=== PATIENT | male | born 1970 | race Caucasian/White ===

== ENCOUNTER 2017-08-01 07:20 | Emergency (ER) | payer BC ==
[2017-08-01 07:36] VITALS: BP 143/94
--- NOTE | 2017-08-01 08:04 | UC ---
Lower Extremity/Ankle HPI - HPI Summary HPI Summary: 2-3 DAYS OF RIGHT GREAT TOE PAIN. DENIES ANY INJURY OR TRAUMA, FOREFOOT IS RED AND SWOLLEN. LAST NIGHT CUT HIS GREAT TOENAIL TOO SHORT AND HAD SOME CLEAR DRAINAGE TODAY. WONDERING ABOUT INFECTION. NO FEVER, N/V. - History of Current Complaint Chief Complaint: UCLowerExtremity Stated Complaint: FOOT INJURY Time Seen by Provider: 08/01/17 07:28 Hx Obtained From: Patient Onset/Duration: Gradual Onset, Lasting Days, Still Present Severity Initially: Moderate Severity Currently: Moderate Pain Intensity: 8 Pain Scale Used: 0-10 Numeric Aggravating Factor(s): Standing, Ambulation Alleviating Factor(s): Nothing Able to Bear Weight: Yes - WITH PAIN - Allergies/Home Medications Allergies/Adverse Reactions: Allergies Allergy/AdvReac Type Severity Reaction Status Date / Time Penicillins Allergy Hives Verified 08/01/17 07:26 Home Medications: Home Medications Albuterol HFA INHALER* [Ventolin HFA Inhaler*] 1 puff INH Q4H PRN 08/01/17 [ History Confirmed 08/01/17] PMH/Surg Hx/FS Hx/Imm Hx Cardiovascular History: Hypertension Respiratory History: Asthma - Surgical History Surgical History: Yes Surgery Procedure, Year, and Place: fx right orbit - academic advisor. inguinal hernia right. LEFT SHOULDER REPAIR-2013 - Family History Known Family History: Positive: Hypertension Family History: GOUT - Social History Alcohol Use: Daily Alcohol Amount: 3-4 beers / night Substance Use Type: None Smoking Status (MU): Never Smoked Tobacco - Immunization History Most Recent Influenza Vaccination: utd Most Recent Tetanus Shot: unsure Most Recent Pneumonia Vaccination: none Review of Systems Constitutional: Negative Skin: Other - ERYTHEMA Respiratory: Negative Cardiovascular: Negative Gastrointestinal: Negative Musculoskeletal: Edema All Other Systems Reviewed And Are Negative: Yes Physical Exam Triage Information Reviewed: Yes Appearance: Well-Appearing, No Pain Distress, Well-Nourished Vital Signs: Initial Vital Signs Temp 97.7 F 08/01/17 07:29 Pulse 84 08/01/17 07:29 Resp 18 08/01/17 07:29 BP 143/94 08/01/17 07:29 Pulse Ox 97 08/01/17 07:29 Vital Signs Reviewed: Yes Eyes: Positive: Conjunctiva Clear ENT: Positive: Hearing grossly normal Neck: Positive: Supple Respiratory: Positive: No respiratory distress, No accessory muscle use Cardiovascular: Positive: Pulses Normal Abdomen Description: Positive: Soft Musculoskeletal: Positive: ROM Limited @ - RIGHT TOES, Edema @ - RIGHT FOOT, Other: - TTP RIGHT MTP JOINT. NO TENDERNESS BY NAILBED OR DISTAL TOE Neurological: Positive: Alert Psychological: Positive: Age Appropriate Behavior Skin: Positive: Other - RIGHT FOOT ERYTHEMA MOST PRONOUNCED AT MTP JOINT. MEDIAL NAILBED RIGHT GREAT TOE SLIGHTLY MACERATED BUT NOT TENDER. NO DRAINAGE Lower Extremity Course/Dx - Course Course Of Treatment: SX MORE CONSISTENT WITH GOUT THAN INFECTION. PT DECLINES XRAY. STATES NO CHANCE OF FRACTURE. WILL TX WITH PREDNISONE AND HAVE PT F/U WITH PCP. - Differential Dx/Diagnosis Provider Diagnoses: GOUT - RIGHT 1ST MTP JOINT Discharge - Discharge Plan Condition: Stable Disposition: HOME Prescriptions: predniSONE TAB* [Deltasone TAB*] 40 mg PO DAILY #10 tab Patient Education Materials: Low Purine Diet (ED), Gout (ED) Referrals: Neena Jackson MD [Primary Care Provider] - 2 Weeks Additional Instructions: YOUR SYMPTOMS ARE MOST CONSISTENT WITH GOUT. WILL TREAT WITH PREDNISONE FOR 5 DAYS. FOLLOW-UP WITH YOUR PCP ONCE YOU HAVE BEEN SYMPTOM FREE FOR AT LEAST 2 WEEKS TO DISCUSS FURTHER EVAL AND LAB TESTING. YOU MAY BENEFIT FROM DAILY PROPHYLACTIC TREATMENT.
== END 2017-08-01 08:25 | disposition home or self-care (01) ==
LOC: UCEAST 07:20
DX: M10.071 Idiopathic gout, right ankle and foot (principal); I10 Essential (primary) hypertension; J45.909 Unspecified asthma, uncomplicated; Z88.0 Allergy status to penicillin
CPT/HCPCS: 99212; G0463

== ENCOUNTER 2018-09-26 08:33 | Emergency (ER) | payer BC ==
[2018-09-26 08:53] VITALS: BP 144/94
--- NOTE | 2018-09-26 09:20 | UC ---
Upper Extremity HPI - HPI Summary HPI Summary: 48 year old male with prior elbow fx, unsure which elbow, presents with right elbow welling, tenderness, redness with tactile fever since . Patient states redness improving, no fever today. ROM OK, + stiffness, no drainage, no oepn wounds or sores. Started after fall during squash on . no bleeding noted, no bruising. - History of Current Complaint Chief Complaint: UCUpperExtremity Stated Complaint: RT ELLOW SWELLING Time Seen by Provider: 09/26/18 08:56 Hx Obtained From: Patient ?: No Onset/Duration: Sudden Onset, Lasting Days - Severity Initially: Moderate Severity Currently: Mild Pain Intensity: 0 Pain Scale Used: 0-10 Numeric Location Of Pain: Is Discrete @ - RIght elbow Character: Aching, Stiffness Aggravating Factor(s): Movement - Allergies/Home Medications Allergies/Adverse Reactions: Allergies Allergy/AdvReac Type Severity Reaction Status Date / Time Penicillins Allergy Hives Verified 09/26/18 08:53 Home Medications: Home Medications Ibuprofen TAB* [Advil TAB*] 200 mg PO Q6H PRN 09/26/18 [History Confirmed ] PMH/Surg Hx/FS Hx/Imm Hx Previously Healthy: Yes - Surgical History Surgical History: Yes Surgery Procedure, Year, and Place: fx right orbit - fence maker. inguinal hernia right. LEFT SHOULDER REPAIR-2013 - Family History Known Family History: Positive: Hypertension Family History: GOUT - Social History Alcohol Use: Daily Alcohol Amount: 3-4 beers / night Substance Use Type: None Smoking Status (MU): Never Smoked Tobacco - Immunization History Most Recent Influenza Vaccination: utd Most Recent Tetanus Shot: unsure Most Recent Pneumonia Vaccination: none Review of Systems All Other Systems Reviewed And Are Negative: Yes Constitutional: Positive: Fever - tactile Skin: Positive: Other - swelling over r elbow Psychological: Positive: Negative Is Patient Immunocompromised?: No Physical Exam Triage Information Reviewed: Yes Appearance: Well-Appearing, No Pain Distress, Well-Nourished Vital Signs: Initial Vital Signs Temp 96.7 F 09/26/18 08:50 Pulse 61 09/26/18 08:50 Resp 16 09/26/18 08:50 BP 144/94 09/26/18 08:50 Pulse Ox 99 09/26/18 08:50 Vital Signs Reviewed: Yes Eyes: Positive: Conjunctiva Clear Musculoskeletal: Positive: Other: - data management specialist strength + b/l, rad/ ulnar pulses 2+. SITLT R hand, over R olecranon= I swelling, discrete over bursa, mild TTP, + warmth, spreading erythema over elbow, surrounding tissues extending to mid humerus. ROM intact over elbow, good strength. Neurological Exam: Normal Psychological Exam: Normal Skin: Positive: Other - data management specialist strength + b/l, rad/ ulnar pulses 2+. SITLT R hand , over R olecranon= I swelling, discrete over bursa, mild TTP, + warmth, spreading erythema over elbow, surrounding tissues extending to mid humerus. ROM intact over elbow, good strength. Upper Extremity Course/Dx - Course Course Of Treatment: olecranon bursitis, possible infection. CLindamycin given, SANTANA, discussed with Dr. Padilla, f/u friday, go to ER with worsening. - Differential Dx/Diagnosis Provider Diagnosis: Olecranon bursitis Discharge - Sign-Out/Discharge Documenting (check all that apply): Patient Departure All imaging exams completed and their final reports reviewed: No Studies - Discharge Plan Condition: Fair Disposition: HOME Prescriptions: Clindamycin Cap(NF) [Clindamycin Cap 300 mg Cap(NF)] 300 mg PO Q6H #28 cap Patient Education Materials: Elbow Bursitis (ED), Clindamycin (By mouth) Referrals: Neena Jackson MD [Primary Care Provider] - Jaqui Padilla MD [Medical Doctor] - (Call Friday AM for appointment, call over weekend with increased symptoms. ) Additional Instructions: - FOllow up with Dr. Padilla Friday for evaluation, call friday morning for appointment - GO to ER with fever > 101, increased redness, pain, or decreased Range of motion - Motrin as needed for pain - Compression with SANTANA wrap, keep elevated, ICE - Monitor area for increased redness, swelling- go to ER with spread - Antibitoics as directed - Billing Disposition and Condition Condition: FAIR Disposition: Home
== END 2018-09-26 09:35 | disposition home or self-care (01) ==
LOC: UCEAST 08:33
DX: M70.21 Olecranon bursitis, right elbow (principal); Y93.73 Activity, racquet and hand sports; Z88.0 Allergy status to penicillin
CPT/HCPCS: 99212; G0463

== ENCOUNTER 2020-05-02 14:16 | Observation (INO) ==
[2020-05-02 18:49] LABS: ABS Lymphocytes 0.6 10^3/ul (1.0-4.8); ABS Monocytes 0.8 10^3/ul (0-0.8); ABS Neutrophils 7.9 10^3/ul (1.5-7.7); Eosinophil % 0.1 %; Hematocrit 49 % (42-52); Lymphocyte % 6.1 %; Mean Corpuscular HGB Conc 35 g/dL (31-36); Mean Corpuscular Hemoglobin 36 pg (27-31); Mean Corpuscular Volume 103 fL (80-94); Mean Platelet Volume 9.1 fL (7.4-10.4); Nucleated Red Blood Cells % 0.1; Platelet Count 184 10^3/uL (150-450); Red Blood Count 4.74 10^6 /uL (4.18-5.48); Red Cell Distribution Width 13 % (10-15); White Blood Count 9.3 10^3/uL (3.5-10.8)
[2020-05-02 19:02] LABS: Albumin 4.4 g/dL (3.2-5.2); Albumin/Globulin Ratio 1.3 (1-3); BUN/Creatinine Ratio 10.3 (8-20); C Reactive Protein 100.94 mg/L (<8.01); Calcium 9.9 mg/dL (8.6-10.3); EGFR African American 98.3 (>60); EGFR Non-African American 81.3 (>60); Globulin 3.4 g/dL (2-4); Magnesium 1.4 mg/dL (1.9-2.7); Potassium 3.9 mmol/L (3.5-5.0); Total Bilirubin 1.2 mg/dL (0.2-1.0); Total Protein 7.8 g/dL (6.4-8.9)
[2020-05-02 19:15] LABS: TSH Ultra Thyroid Stim Horm 2.38 mcIU/mL (0.34-5.60)
[2020-05-02 20:19] LABS: Erythrocyte Sed Rate 25 mm/Hr (0-19)
[2020-05-02 21:36] LABS: Urine Appearance Clear; Urine Bilirubin Negative (Negative); Urine Blood Negative (Negative); Urine Color Amber; Urine Glucose Negative (Negative); Urine Ketones 1+ (Negative); Urine Nitrite Negative (Negative); Urine Protein Negative (Negative); Urine Specific Gravity 1.014 (1.010-1.030); Urine Urobilinogen Negative (Negative)
[2020-05-02 21:55] LABS: Uric Acid 3.2 mg/dL (4.4-7.6)
[2020-05-02] MEDS ORDERED: Magnesium Sulfate 2 gm BAG 2 GM/50 ML BAG IVPB ONE (22:04)
[2020-05-02] MEDS ORDERED: Ondansetron 4 mg VIAL 2 MG/ML 2 ml VIAL IV PRN (22:04)
[2020-05-02] MEDS: HYDROcodone/ACETAMIN 5/325 mg TAB PO PRN (22:14)
[2020-05-02] MEDS ORDERED: Albuterol HFA INHALER 8 gm MDI INH PRN (22:18)
[2020-05-03] MEDS: NS 0.9% 1000 ml BAG 1,000 ML IV SCH ×2 (00:13→08:12)
[2020-05-03] MEDS: Enoxaparin 40 MG/0.4 ML SYR SUBCUT SCH ×2 (00:53→22:03)
[2020-05-03] MEDS: HYDROcodone/ACETAMIN 5/325 mg TAB PO PRN ×3 (06:28→22:04)
[2020-05-03] MEDS: Multivitamins/Minerals TAB PO SCH (08:35)
[2020-05-03 08:53] LABS: ABS Lymphocytes 0.6 10^3/ul (1.0-4.8); ABS Monocytes 0.5 10^3/ul (0-0.8); ABS Neutrophils 5.7 10^3/ul (1.5-7.7); Hematocrit 46 % (42-52); Lymphocyte % 9.1 %; Mean Corpuscular HGB Conc 35 g/dL (31-36); Mean Corpuscular Hemoglobin 36 pg (27-31); Mean Corpuscular Volume 103 fL (80-94); Platelet Count 197 10^3/uL (150-450); Red Blood Count 4.44 10^6 /uL (4.18-5.48); Red Cell Distribution Width 13 % (10-15); White Blood Count 6.9 10^3/uL (3.5-10.8)
[2020-05-03 09:13] LABS: Albumin 3.9 g/dL (3.2-5.2); Albumin/Globulin Ratio 1.1 (1-3); BUN/Creatinine Ratio 13.7 (8-20); Calcium 9.5 mg/dL (8.6-10.3); EGFR African American 136.5 (>60); EGFR Non-African American 112.8 (>60); Globulin 3.4 g/dL (2-4); Indirect Bilirubin 0.6 mg/dL (0.3-1.0); Potassium 4.1 mmol/L (3.5-5.0); Total Bilirubin 0.8 mg/dL (0.2-1.0); Total Protein 7.3 g/dL (6.4-8.9)
[2020-05-03 09:50] LABS: % Iron Saturation 7 % (15-55); Iron 23 ug/dL (50-212); Total Iron Binding Capacity 337 mcg/dL (250-450); Transferrin 241 mg/dL (203-362); Unsaturated Iron Binding < 322 ug/dL
[2020-05-03 11:33] LABS: Hepatitis B Surface Antigen Nonreactive (Nonreactive)
[2020-05-03 11:38] LABS: Hepatitis A Ab IgM Negative (Negative); Hepatitis B Core IgM Nonreactive (Nonreactive)
[2020-05-03 11:50] LABS: Hepatitis C Antibody Negative (Negative)
[2020-05-03 14:15] LABS: Body Fluid Source Synovial Fluid
[2020-05-03 16:44] LABS: Body Fluid Mono 9 %
[2020-05-03 18:15] LABS: Ferritin 333.4 ng/mL (24-336)
[2020-05-04 06:30] LABS: Hematocrit 43 % (42-52); Hemoglobin 14.9 g/dL (14.0-18.0); Mean Corpuscular HGB Conc 35 g/dL (31-36); Mean Corpuscular Hemoglobin 36 pg (27-31); Mean Corpuscular Volume 103 fL (80-94); Mean Platelet Volume 8.6 fL (7.4-10.4); Platelet Count 209 10^3/uL (150-450); Red Blood Count 4.14 10^6 /uL (4.18-5.48); Red Cell Distribution Width 13 % (10-15)
[2020-05-04 06:57] LABS: Albumin 3.6 g/dL (3.2-5.2); Albumin/Globulin Ratio 1.2 (1-3); BUN/Creatinine Ratio 10.8 (8-20); Calcium 9.2 mg/dL (8.6-10.3); EGFR African American 117.7 (>60); EGFR Non-African American 97.3 (>60); Globulin 3.1 g/dL (2-4); Indirect Bilirubin 0.4 mg/dL (0.3-1.0); Total Bilirubin 0.5 mg/dL (0.2-1.0); Total Protein 6.7 g/dL (6.4-8.9)
[2020-05-04] MEDS: Multivitamins/Minerals TAB PO SCH (09:41)
[2020-05-04 12:04] VITALS: BP 146/90
[2020-05-04 13:45] LABS: Anti Streptolysin O Antibody 37 IU/mL (0 - 530)
[2020-05-04] MEDS: HYDROcodone/ACETAMIN 5/325 mg TAB PO PRN (14:42)
[2020-05-04 17:23] LABS: Anti SSA/RO Antibody <0.2 U
[2020-05-04 20:32] LABS: Cyclic Citrullinated Peptide <15.6 U
[2020-05-05 12:20] LABS: Chlamydia trachomatis NAA Negative (Negative); Neisseria gonorrhoeae (GC) NAA Negative (Negative)
[2020-05-05 15:08] LABS: B. garinii/B. afzellii PCR Negative (Negative); Lyme Disease Source SYNOVIAL FLUID
[2020-05-05 15:46] LABS: HLA B27 Negative
[2020-05-05 23:51] LABS: Anaplasma phagocytophilum Negative (Negative); B. miyamotoi PCR, B Negative (Negative); Babesia divergens/MO-1 Negative (Negative); Babesia ducani Negative (Negative); Ehrlichia chaffeensis Negative (Negative); Ehrlichia ewingii/canis Negative (Negative); Ehrlichia muris eauclairensis Negative (Negative)
== END 2020-05-04 15:10 | disposition home or self-care (01) ==
LOC: SSU 14:16 → ED 14:16 → SSU 23:17
PROVIDERS: ADMIT Internal Medicine; ATTEND Internal Medicine

== ENCOUNTER 2020-12-21 18:38 | Inpatient (IN) ==
[2020-12-21 20:34] LABS: ABS Lymphocytes 0.6 10^3/ul (1.0-4.8); ABS Monocytes 0.4 10^3/ul (0-0.8); ABS Neutrophils 4.7 10^3/ul (1.5-7.7); Eosinophil % 0.5 %; Hematocrit 43 % (42-52); Hemoglobin 15.5 g/dL (14.0-18.0); Mean Corpuscular HGB Conc 36 g/dL (31-36); Mean Corpuscular Hemoglobin 34 pg (27-31); Mean Corpuscular Volume 95 fL (80-94); Platelet Count 163 10^3/uL (150-450); Red Blood Count 4.55 10^6 /uL (4.18-5.48); Red Cell Distribution Width 13 % (10-15); White Blood Count 5.8 10^3/uL (3.5-10.8)
[2020-12-21 20:46] LABS: Troponin I 0.01 ng/mL (<0.03)
[2020-12-21 20:52] LABS: Albumin 3.9 g/dL (3.2-5.2); Albumin/Globulin Ratio 1.2 (1-3); Calcium 8.9 mg/dL (8.6-10.3); EGFR African American 98.3 (>60); EGFR Non-African American 81.3 (>60); Globulin 3.2 g/dL (2-4); Potassium 3.6 mmol/L (3.5-5.0); Total Bilirubin 0.4 mg/dL (0.2-1.0); Total Protein 7.1 g/dL (6.4-8.9)
[2020-12-21 20:53] LABS: C Reactive Protein 73.24 mg/L (<8.01)
[2020-12-21] MEDS ORDERED: Albuterol HFA INHALER 8 gm MDI INH PRN ×2 (23:14→23:45)
[2020-12-21 23:36] LABS: Magnesium 1.9 mg/dL (1.9-2.7)
[2020-12-21] MEDS ORDERED: Magnesium Sulfate 2 gm BAG 2 GM/50 ML BAG IVPB ONE (23:45)
[2020-12-22] MEDS: Enoxaparin 60 MG/0.6 ML SYR SUBCUT SCH ×3 (03:07→20:00)
[2020-12-22 09:39] LABS: ABS Lymphocytes 0.3 10^3/ul (1.0-4.8); ABS Monocytes 0.1 10^3/ul (0-0.8); ABS Neutrophils 2.9 10^3/ul (1.5-7.7); Hematocrit 43 % (42-52); Hemoglobin 15.5 g/dL (14.0-18.0); Lymphocyte % 9.6 %; Mean Corpuscular HGB Conc 36 g/dL (31-36); Mean Corpuscular Hemoglobin 34 pg (27-31); Mean Corpuscular Volume 94 fL (80-94); Mean Platelet Volume 8.8 fL (7.4-10.4); Platelet Count 178 10^3/uL (150-450); Red Blood Count 4.57 10^6 /uL (4.18-5.48); Red Cell Distribution Width 13 % (10-15); White Blood Count 3.4 10^3/uL (3.5-10.8)
[2020-12-22 09:52] LABS: Calcium 8.5 mg/dL (8.6-10.3); EGFR Non-African American 116.5 (>60); Potassium 3.9 mmol/L (3.5-5.0)
[2020-12-22] MEDS ORDERED: Remdesivir 100 mg Vial 200 MG in NS 0.9% 250 ml 210 ML IV ONE (10:10)
[2020-12-23 08:31] LABS: ABS Lymphocytes 0.8 10^3/ul (1.0-4.8); ABS Monocytes 0.7 10^3/ul (0-0.8); ABS Neutrophils 5.1 10^3/ul (1.5-7.7); Eosinophil % 0.1 %; Hematocrit 42 % (42-52); Hemoglobin 15.3 g/dL (14.0-18.0); Lymphocyte % 12.5 %; Mean Corpuscular HGB Conc 36 g/dL (31-36); Mean Corpuscular Hemoglobin 35 pg (27-31); Mean Corpuscular Volume 95 fL (80-94); Nucleated Red Blood Cells % 0.1; Platelet Count 208 10^3/uL (150-450); Red Blood Count 4.44 10^6 /uL (4.18-5.48); Red Cell Distribution Width 13 % (10-15); White Blood Count 6.6 10^3/uL (3.5-10.8)
[2020-12-23 08:34] LABS: INR 1.03 (0.86-1.15)
[2020-12-23 08:46] LABS: Albumin 3.6 g/dL (3.2-5.2); Albumin/Globulin Ratio 1.2 (1-3); Calcium 8.5 mg/dL (8.6-10.3); EGFR African American 150.7 (>60); EGFR Non-African American 124.6 (>60); Globulin 2.9 g/dL (2-4); Potassium 3.6 mmol/L (3.5-5.0); Total Bilirubin 0.3 mg/dL (0.2-1.0); Total Protein 6.5 g/dL (6.4-8.9)
[2020-12-23] MEDS: Remdesivir 100 mg Vial 100 MG in NS 0.9% 250 ml 230 ML IV SCH (08:50)
[2020-12-23] MEDS: Enoxaparin 60 MG/0.6 ML SYR SUBCUT SCH ×2 (08:51→21:40)
[2020-12-24 09:00] LABS: INR 1.12 (0.86-1.15)
[2020-12-24 09:10] LABS: Albumin 3.6 g/dL (3.2-5.2); Albumin/Globulin Ratio 1.3 (1-3); Calcium 8.6 mg/dL (8.6-10.3); EGFR African American 119.4 (>60); EGFR Non-African American 98.7 (>60); Globulin 2.8 g/dL (2-4); Potassium 3.3 mmol/L (3.5-5.0); Total Bilirubin 0.4 mg/dL (0.2-1.0); Total Protein 6.4 g/dL (6.4-8.9)
[2020-12-24] MEDS ORDERED: Potassium Chlor 20 meq TAB.ER PO ONE (09:49)
[2020-12-24] MEDS: Remdesivir 100 mg Vial 100 MG in NS 0.9% 250 ml 230 ML IV SCH (10:25)
[2020-12-24] MEDS: Enoxaparin 60 MG/0.6 ML SYR SUBCUT SCH ×2 (10:26→19:58)
[2020-12-24] MEDS ORDERED: Senna TAB 8.6 mg TAB PO PRN (16:19)
[2020-12-24] MEDS ORDERED: Magnesium Hydroxide LIQ 30 ML UDC PO PRN (16:19)
[2020-12-24] MEDS ORDERED: Polyethylene Glycol 3350 17 GM PACKET PO PRN (16:19)
[2020-12-25 06:38] LABS: INR 1.13 (0.86-1.15)
[2020-12-25 06:46] LABS: Albumin 3.6 g/dL (3.2-5.2); Albumin/Globulin Ratio 1.2 (1-3); Calcium 8.7 mg/dL (8.6-10.3); EGFR African American 126.5 (>60); EGFR Non-African American 104.5 (>60); Globulin 2.9 g/dL (2-4); Potassium 3.6 mmol/L (3.5-5.0); Total Bilirubin 0.5 mg/dL (0.2-1.0); Total Protein 6.5 g/dL (6.4-8.9)
[2020-12-25] MEDS: Remdesivir 100 mg Vial 100 MG in NS 0.9% 250 ml 230 ML IV SCH (09:33)
[2020-12-25] MEDS: Enoxaparin 60 MG/0.6 ML SYR SUBCUT SCH (09:33)
[2020-12-25 11:19] VITALS: BP 121/78
== END 2020-12-25 16:35 | disposition home or self-care (01) | DRG 137 ==
LOC: MED 18:38 → ED 18:38 → MED 12-22 01:34
PROVIDERS: ADMIT Internal Medicine; ATTEND Student in an Organized Health Care Education/Training Program